=== PATIENT | female | born 1980 | race Caucasian/White ===

== ENCOUNTER → 2017-02-08 | Outpatient (CLI) | payer OTHER ==
[~2017-02-08] MED LIST: CIPRO 250MG TA250 MG PO; GLIPIZIDE10 MG PO; LISINOPRIL 10MG10 MG PO; METFORMIN500 MG PO; NOMEDS; PYRIDIUM 200MG200 MG PO; VICTOZA6 MG/ML SC
--- NOTE | 2017-02-08 17:56 | RADIOLOGY REPORT PS360 ---
US THYROID HISTORY: Follow-up thyroid nodules THYROMEGLY ORDERING PHYSICIAN: Jay Connor MD PATIENT AGE: 36 years COMPARISON: 08/03/2016 FINDINGS: The ethmoid sinuses thickened at 7 mm with homogeneous echogenicity. Right lobe: 4.6 x 1.4 x 2.3 cm. 3 mm cystic nodule superior pole unchanged 3 mm cystic nodule mid polar region unchanged Left lobe: 6 x 2.2 x 3 cm. 5 mm hypoechoic nodule upper pole unchanged 5 mm hypoechoic nodule mid polar region unchanged 9 mm hypoechoic nodule lower pole unchanged. IMPRESSION: Mild thyromegaly with bilateral thyroid nodules unchanged with low suspicion for malignancy
== END ==
LOC: RAD 02-03 15:30
DX: E01.0 Iodine-deficiency related diffuse (endemic) goiter (principal)